=== PATIENT | female | born 1985 | race Caucasian/White ===

== ENCOUNTER 2016-11-17 09:22 | Emergency (ER) | payer BC ==
[2016-11-17 09:34] VITALS: RESP 18; O2SAT 97
--- NOTE | 2016-11-17 09:37 | UCPHY ---
H & P Time Seen by Provider: 11/17/16 09:31 Patient Type: New HPI/ROS: CHIEF COMPLAINT: Sore throat History by patient HISTORY OF PRESENT ILLNESS: 31-year-old woman presents complaining of 2 days of progressive sore throat. Patient noticed that her tonsils were swollen and white stuff on them this morning. She is worried she has strep. She has some subjective chills this morning but did not check her temperature. She has not taken anything for it. 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 She denies any difficulty swallowing or breathing. She had no cough, nausea or vomiting or abdominal pain. REVIEW OF SYSTEMS: As in HPI, and all other systems reviewed and are negative Smoking Status: Never smoked Physical Exam: General Appearance: Alert and no distress. Head: normocephalic, atraumatic, no sinus tenderness Eyes: Pupils equal and round no injection. Ears: TM clear bilat OP: mucus membranes moist, positive erythema, bilateral tonsillar enlargement, positive left greater than right exudates Neck: no meningismus, bilateral mildly tender cervical nodes, no submandibular nodes Respiratory: Chest is nontender, lungs are clear to auscultation. Cardiac: regular rate and rhythm. Gastrointestinal: Abdomen is soft and nontender, no masses, bowel sounds normal. Musculoskeletal: Neck is supple and nontender. Extremities have full range of motion and are nontender. Skin: No rashes or lesions. Constitutional: Initial Vital Signs Temperature (C) 36.9 C 11/17/16 09:32 Heart Rate 71 11/17/16 09:32 Respiratory Rate 18 11/17/16 09:32 Blood Pressure 118/81 H 11/17/16 09:32 O2 Sat (%) 97 11/17/16 09:32 O2 Delivery Mode Room Air Allergies/Adverse Reactions: No Known Allergies Allergy (Unverified 11/17/16 09:32) Home Medications: Medication Instructions Recorded 11/17/16 Medical Decision Making ED Course/Re-evaluation: Patient presents with pharyngitis. There is no evidence of peritonsillar abscess or respiratory compromise. Rapid strep was negative. We discussed home care and conservative measures. - Data Points Laboratory Results: 11/17/16 11/17/16 Unknown 09:30 Group A Strep Screen NEGATIVE (NEGATIVE) Group A Strep DNA Pending Departure - Departure Disposition: Home, Routine, Self-Care Clinical Impression: Acute pharyngitis, unspecified Qualifiers: Pharyngitis/tonsillitis etiology: unspecified etiology Qualified Code(s): J02.9 - Acute pharyngitis, unspecified Condition: Good Instructions: Pharyngitis (ED) Additional Instructions: You were seen by Dr. Kylie Santacruz today. Return for any worsening or new concerns. - PQRS PQRS Measurement: NA
[2016-11-17 09:47] VITALS: BP 115/64; PULSE 74; TEMP 98.6
== END 2016-11-17 09:55 | disposition home or self-care (01) ==
LOC: CED 09:22
DX: J02.9 Acute pharyngitis, unspecified (principal)
CPT/HCPCS: 87880-PO; 99203-PO; G0463-PO